=== PATIENT | female | born 1960 | race Caucasian/White ===

== ENCOUNTER 2018-06-07 15:35 | Outpatient (REF) | payer BC, SELFPAY ==
[2018-06-07 20:58] LABS: ALT 27 U/L (12-78); AST 25 U/L (15-37); Albumin 4.2 g/dL (3.4-5.0); Alkaline Phosphatase 73 U/L (46-116); Anion Gap 3.7 mmol/L (3-11); BUN 15 mg/dL (7-18); Bilirubin, Total 0.4 mg/dL (0.2-1.0); CO2 33.3 mmol/L (21.0-32.0); CREATININE 0.68 mg/dL (0.55-1.02); Calcium 9.3 mg/dL (8.5-10.1); Chloride 105 mmol/L (98-107); Glucose 87 mg/dL (70-100); Potassium 4.7 mmol/L (3.5-5.1); Sodium 142 mmol/L (136-145); Total Protein 7.6 g/dL (6.4-8.2); Uric Acid 5.2 mg/dL (2.6-6.0)
[2018-06-07 21:14] LABS: Hemoglobin A1C 5.9 % (4.5-6.2)
== END 2018-06-07 15:36 ==
LOC: NCHCN 15:35
PROVIDERS: PCP Family Medicine; Visit Provider Family Medicine
DX: I10 Essential (primary) hypertension (principal); M10.9 Gout, unspecified; E66.9 Obesity, unspecified
CPT/HCPCS: 80053; 83036; 84550

== ENCOUNTER 2019-06-24 08:46 | Outpatient (REF) | payer BC, SELFPAY ==
[2019-06-24 21:24] LABS: ALT 23 U/L (12-78); AST 19 U/L (15-37); Albumin 3.9 g/dL (3.4-5.0); Alkaline Phosphatase 73 U/L (46-116); BUN 12 mg/dL (7-18); Bilirubin, Total 0.8 mg/dL (0.2-1.0); Calcium 9.2 mg/dL (8.5-10.1); Calculated LDL 120 mg/dL; Chloride 105 mmol/L (98-107); Cholesterol 240 mg/dL (50-200); Glucose 93 mg/dL (70-100); HDL Cholesterol 105 mg/dL (40-60); Potassium 5.2 mmol/L (3.5-5.1); Sodium 144 mmol/L (136-145); Total Protein 7.4 g/dL (6.4-8.2); Triglyceride 78 mg/dL (30-150)
[2019-06-24 21:37] LABS: Hemoglobin A1C 5.9 % (4.5-6.2)
== END 2019-06-24 09:06 ==
LOC: NCHCN 08:46
PROVIDERS: PCP Family Medicine; Visit Provider Family Medicine
DX: Z00.00 Encounter for general adult medical examination without abnormal findings (principal); R73.03 Prediabetes; E66.9 Obesity, unspecified
CPT/HCPCS: 80053; 80061; 83721; 83036

== ENCOUNTER 2019-07-14 00:36 | Outpatient (CLI) | payer BC, SELFPAY ==
--- NOTE | 2019-07-14 17:03 | DI.CTLCSR_ITS ---
SYMPTOM/DIAGNOSIS: COPD, J44.9, FORMER SMOKER Z87.[address] LOW DOSE LUNG CANCER SCREENING PROTOCOL: 07/14 CT examination of the chest was performed utilizing low dose lung cancer screening protocol. Lungs are clear. No pulmonary nodule identified. No pleural effusion. No mediastinal or hilar adenopathy. Tracheobronchial tree appears intact. Images obtained through the upper abdomen show unremarkable appearance of visualized portions of liver, spleen, pancreas and adrenals. CONCLUSION: Negative low dose lung cancer screening study. Category 1. Continue annual screening with LDCT in 12 months. [facility] ASSESSMENT OF FINDINGS: Negative. Category 1. Patient will receive a letter notifying them of these results.
== END 2019-07-14 00:56 ==
PROVIDERS: PCP Family Medicine; Visit Provider Family Medicine
DX: Z12.2 Encounter for screening for malignant neoplasm of respiratory organs (principal); J44.9 Chronic obstructive pulmonary disease, unspecified; Z87.891 Personal history of nicotine dependence
CPT/HCPCS: G0297

== ENCOUNTER 2019-07-22 18:12 | Outpatient (REF) | payer BC, SELFPAY ==
[2019-07-22 21:33] LABS: Potassium 4.4 mmol/L (3.5-5.1)
== END 2019-07-22 18:32 ==
LOC: NCHCN 18:12
PROVIDERS: PCP Family Medicine; Visit Provider Family Medicine
DX: I10 Essential (primary) hypertension (principal); E87.5 Hyperkalemia
CPT/HCPCS: 84132

== ENCOUNTER 2020-02-26 15:05 | Outpatient (REF) | payer BC, SELFPAY ==
[2020-02-26 20:40] LABS: Anion Gap 6.3 mmol/L (3-11); BUN 11 mg/dL (7-18); CO2 30.7 mmol/L (21.0-32.0); CREATININE 0.78 mg/dL (0.55-1.02); Calcium 8.7 mg/dL (8.5-10.1); Chloride 101 mmol/L (98-107); Glucose 105 mg/dL (74-106); Potassium 4.4 mmol/L (3.5-5.1); Sodium 138 mmol/L (136-145)
[2020-02-26 20:50] LABS: Hemoglobin A1C 5.6 % (3.8-5.6)
== END 2020-02-26 15:25 ==
LOC: NCHCN 15:05
PROVIDERS: PCP Family Medicine; Visit Provider Family Medicine
DX: R73.03 Prediabetes (principal); I10 Essential (primary) hypertension
CPT/HCPCS: 80048; 83036

== ENCOUNTER 2020-03-26 22:25 | Outpatient (REF) | payer BC, SELFPAY ==
[2020-03-26 21:17] LABS: Bacteria Few HPF (Negative); C & S Indicated? C&S Done As Ordered; Casts Negative LPF (Negative); Crystals Negative HPF (Negative); Epithelial Cells Few HPF (Negative); Mucus Negative (Negative); RBC 0-2 HPF (0-2)
== END 2020-03-26 22:45 ==
LOC: NCHCN 22:25
PROVIDERS: PCP Family Medicine; Visit Provider Nurse Practitioner Family
DX: R39.9 Unspecified symptoms and signs involving the genitourinary system (principal)
CPT/HCPCS: 87077; 81015; 87086; 87186

== ENCOUNTER 2021-03-03 18:22 | Outpatient (REF) | payer BC, SELFPAY ==
[2021-03-03 21:36] LABS: Hemoglobin A1C 5.7 % (<5.7)
[2021-03-03 21:38] LABS: Anion Gap 9.8 mmol/L (3-11); BUN 10 mg/dL (7-18); CO2 31.2 mmol/L (21.0-32.0); CREATININE 0.7 mg/dL (0.55-1.02); Calcium 9.6 mg/dL (8.5-10.1); Chloride 104 mmol/L (98-107); Glucose 94 mg/dL (74-106); Sodium 145 mmol/L (136-145)
== END 2021-03-03 18:23 | disposition home or self-care (01) ==
LOC: NCHCN 18:22
PROVIDERS: PCP Family Medicine; Visit Provider Family Medicine
DX: Z00.00 Encounter for general adult medical examination without abnormal findings (principal); I10 Essential (primary) hypertension; R73.03 Prediabetes; E66.9 Obesity, unspecified
CPT/HCPCS: 80048; 83036

== ENCOUNTER 2022-03-10 17:10 | Outpatient (REF) | payer OTHER, SELFPAY ==
[2022-03-10 15:03] LABS: ALT 20 U/L (14-59); AST 18 U/L (15-37); Albumin 3.8 g/dL (3.4-5.0); Alkaline Phosphatase 89 U/L (46-116); Anion Gap 8.4 mmol/L (3-11); BUN 8 mg/dL (7-18); Bilirubin, Total 0.6 mg/dL (0.2-1.0); CO2 32.6 mmol/L (21.0-32.0); CREATININE 0.6 mg/dL (0.55-1.02); Calcium 9.1 mg/dL (8.5-10.1); Calculated LDL 109 mg/dL (<100); Chloride 103 mmol/L (98-107); Cholesterol 211 mg/dL (<200); Glucose 95 mg/dL (74-106); HDL Cholesterol 84 mg/dL (40-60); Potassium 4.4 mmol/L (3.5-5.1); Sodium 144 mmol/L (136-145); Total Protein 7.6 g/dL (6.4-8.2); Triglyceride 92 mg/dL (<150)
[2022-03-10 15:17] LABS: Hemoglobin A1C 5.7 % (<5.7)
== END 2022-03-10 17:11 | disposition home or self-care (01) ==
LOC: NCHCN 17:10
PROVIDERS: PCP Family Medicine; Visit Provider Family Medicine
DX: Z00.00 Encounter for general adult medical examination without abnormal findings (principal); R73.03 Prediabetes; E66.9 Obesity, unspecified; Z13.220 Encounter for screening for lipoid disorders
CPT/HCPCS: 80053; 80061; 83036

== ENCOUNTER 2022-03-17 11:32 | Outpatient (REF) | payer OTHER, SELFPAY ==
--- NOTE | 2022-03-17 14:32 | PAPFT_PTH ---
PATIENT: Teresita Lilly LOC: [facility] U#:[id number] AGE/SX: 61/F ROOM: RE03/17/[address]: Mariama Velazquez : 1960 BED: DIS: 03/17/2022 SPEC #: [id number] RECD: 03/21/22 12:55 STATUS: [place] REMaria Esther #: [id number] BEATA: 03/17/22 14:[address]: Mariama Velazquez DEPT: [facility] Cytology RECD BY: Carrie Lam Tissues: 1 - CX/ENDOCX FOR PAP SMEARS Procedures: PAP THIN PREP/[facility] Screening HPV DNA PROBE Comments: [id number]
== END 2022-03-17 15:29 | disposition home or self-care (01) ==
LOC: NCHCN 11:32
PROVIDERS: PCP Family Medicine; Visit Provider Family Medicine
DX: Z00.00 Encounter for general adult medical examination without abnormal findings (principal); Z12.4 Encounter for screening for malignant neoplasm of cervix; Z11.51 Encounter for screening for human papillomavirus (HPV)
CPT/HCPCS: 88142; 87624

== ENCOUNTER 2023-03-14 14:16 | Outpatient (REF) | payer OTHER, SELFPAY ==
[2023-03-14 14:50] LABS: Hemoglobin A1C 5.5 % (<5.7)
[2023-03-14 14:55] LABS: Anion Gap 6.7 mmol/L (3-11); BUN 11 mg/dL (7-18); CO2 35.3 mmol/L (21.0-32.0); CREATININE 0.7 mg/dL (0.55-1.02); Calcium 9.8 mg/dL (8.5-10.1); Chloride 104 mmol/L (98-107); Estimated GFR 98.34 (mL/min/1.73m2); Glucose 94 mg/dL (74-106); Potassium 4.3 mmol/L (3.5-5.1); Sodium 146 mmol/L (136-145)
== END 2023-03-14 14:17 | disposition home or self-care (01) ==
LOC: NCHCN 14:16
PROVIDERS: PCP Family Medicine; Visit Provider Family Medicine
DX: I10 Essential (primary) hypertension (principal); R73.03 Prediabetes
CPT/HCPCS: 80048; 83036

== ENCOUNTER 2023-11-12 15:48 | Outpatient (REF) | payer OTHER, SELFPAY ==
[2023-11-12 21:29] LABS: Abs Immature Grans 0.03 10^3/uL (0.0-0.06); Absolute Basophil Count 0.04 10^3/uL (0.0-0.2); Absolute Eosinophil Count 0.12 10^3/uL (0.0-0.7); Absolute Lymphocyte Count 1.08 10^3/uL (1.2-3.4); Absolute Monocyte Count 0.52 10^3/uL (0.1-0.8); Basophils % 0.6; Eosinophils % 1.7; HGB 14.8 g/dL (11.2-15.7); Immature Grans % 0.4; Lymphocytes % 15.2; MCH 28.1 pg (27.0-33.0); MCHC 30.8 % (32.0-36.0); MCV 91 fL (80-95); MPV 11.6 fL (8.0-11.0); Monocytes % 7.3; Neutrophils % 74.8; Platelet Count 310 10^3/uL (130-400); RBC 5.27 10^6/uL (3.93-5.22); RDW 14.7 % (11.7-14.6); RDW-SD 49.3 fL; WBC 7.09 10^3/uL (4.4-10.8)
[2023-11-12 21:55] LABS: ALT 30 U/L (14-59); AST 33 U/L (15-37); Albumin 3.4 g/dL (3.4-5.0); Alkaline Phosphatase 102 U/L (46-116); Anion Gap 5.4 mmol/L (3-11); BUN 10 mg/dL (7-18); Bilirubin, Total 1.1 mg/dL (0.2-1.0); CO2 34.6 mmol/L (21.0-32.0); CREATININE 0.9 mg/dL (0.55-1.02); Calcium 8.8 mg/dL (8.5-10.1); Chloride 106 mmol/L (98-107); Estimated GFR 72.28 (mL/min/1.73m2); Glucose 103 mg/dL (74-106); Potassium 3.1 mmol/L (3.5-5.1); Sodium 146 mmol/L (136-145); TSH (W/Ref FT4) 2.05 uIU/mL (0.36-3.74); Total Protein 7.7 g/dL (6.4-8.2)
== END 2023-11-12 15:49 | disposition home or self-care (01) ==
LOC: NCHCN 15:48
PROVIDERS: PCP Family Medicine; Visit Provider Registered Nurse
DX: R60.0 Localized edema (principal)
CPT/HCPCS: 80053; 84443; 85025

== ENCOUNTER 2024-03-20 08:49 | Outpatient (REF) | payer OTHER, SELFPAY ==
[2024-03-20 15:25] LABS: Hemoglobin A1C 5.5 % (<5.7)
[2024-03-20 15:28] LABS: ALT 32 U/L (14-59); AST 26 U/L (15-37); Albumin 3.8 g/dL (3.4-5.0); Alkaline Phosphatase 77 U/L (46-116); Anion Gap 10.5 mmol/L (3-11); BUN 16 mg/dL (7-18); Bilirubin, Total 0.6 mg/dL (0.2-1.0); CO2 33.5 mmol/L (21.0-32.0); CREATININE 0.8 mg/dL (0.55-1.02); Calcium 9.2 mg/dL (8.5-10.1); Calculated LDL 97 mg/dL (<100); Chloride 104 mmol/L (98-107); Cholesterol 199 mg/dL (<200); Estimated GFR 83.26 (mL/min/1.73m2); Glucose 81 mg/dL (74-106); HDL Cholesterol 91 mg/dL (40-60); Potassium 3.8 mmol/L (3.5-5.1); Sodium 148 mmol/L (136-145); Total Protein 7.6 g/dL (6.4-8.2); Triglyceride 59 mg/dL (<150)
== END 2024-03-20 08:50 | disposition home or self-care (01) ==
LOC: NCHCN 08:49
PROVIDERS: PCP Family Medicine; Visit Provider Family Medicine
DX: Z00.00 Encounter for general adult medical examination without abnormal findings (principal)
CPT/HCPCS: 80053; 80061; 83036

== ENCOUNTER 2024-05-02 15:36 | Outpatient (REF) | payer OTHER, SELFPAY | END 2024-05-02 15:37 | disposition home or self-care (01) | LOC: NCHCN 15:36 | PROVIDERS: PCP Family Medicine; Visit Provider Family Medicine | DX: R39.89 Other symptoms and signs involving the genitourinary system (principal); N39.0 Urinary tract infection, site not specified; B96.29 Other Escherichia coli [E. coli] as the cause of diseases classified elsewhere | CPT/HCPCS: 87077; 87086; 87186 ==

== ENCOUNTER 2024-09-24 09:04 | Outpatient (REF) | payer OTHER, SELFPAY ==
[2024-09-24 15:11] LABS: Hemoglobin A1C 5.7 % (<5.7)
[2024-09-24 15:19] LABS: Anion Gap 4.7 mmol/L (3-11); BUN 13 mg/dL (7-18); CO2 32.3 mmol/L (21.0-32.0); CREATININE 0.7 mg/dL (0.55-1.02); Calcium 8.8 mg/dL (8.5-10.1); Chloride 109 mmol/L (98-107); Estimated GFR 97.12 (mL/min/1.73m2); Glucose 85 mg/dL (74-106); Potassium 4.5 mmol/L (3.5-5.1); Sodium 146 mmol/L (136-145); TSH 2.81 uIU/mL (0.36-3.74)
== END 2024-09-24 09:05 | disposition home or self-care (01) ==
LOC: NCHCN 09:04
PROVIDERS: PCP Family Medicine; Visit Provider Family Medicine
DX: R73.03 Prediabetes (principal); I10 Essential (primary) hypertension
CPT/HCPCS: 80048; 83036; 84439; 84443

== ENCOUNTER 2025-07-07 15:46 | Outpatient (REF) | payer OTHER, SELFPAY ==
[2025-07-07 21:03] LABS: Hemoglobin A1C 5.8 % (<5.7)
[2025-07-07 21:10] LABS: ALT 23 U/L (14-59); AST 29 U/L (15-37); Albumin 3.8 g/dL (3.4-5.0); Alkaline Phosphatase 62 U/L (46-116); Anion Gap 4.6 mmol/L (3-11); BUN 13 mg/dL (7-18); Bilirubin, Total 0.4 mg/dL (0.2-1.0); CO2 33.4 mmol/L (21.0-32.0); Calcium 9.2 mg/dL (8.5-10.1); Chloride 106 mmol/L (98-107); Estimated GFR 96.52 (mL/min/1.73m2); Glucose 96 mg/dL (74-106); Potassium 4.1 mmol/L (3.5-5.1); Sodium 144 mmol/L (136-145); Total Protein 7.4 g/dL (6.4-8.2)
== END 2025-07-07 15:47 | disposition home or self-care (01) ==
LOC: NCHCN 15:46
PROVIDERS: PCP Family Medicine; Visit Provider Family Medicine
DX: I10 Essential (primary) hypertension (principal); R73.03 Prediabetes
CPT/HCPCS: 80053; 83036